=== PATIENT | female | born 1990 | race Caucasian/White ===

== ENCOUNTER → 2017-08-08 | Outpatient (CLI) | payer BC ==
[~2017-08-08] MED LIST: AUGMENTIN 875-1 EACH PO; AVPAK AZITHROM250 MG PO; FLEXERIL10 MG PO; IBU-8800 MG PO; LORTAB 5/500 501 TAB PO; PHENERGAN 25MG.25 M1 PO; PREDNISONE 20MG20 MG PO; PRENATAL PLUS1 TA1 PO; TESSALON PERLE200 MG PO; ZYRTEC-D 12HR 51 TER PO
--- NOTE | 2017-08-08 08:34 | RADIOLOGY REPORT PS360 ---
ELBOW-LT-2 VIEWS COMPARISON: Left elbow 06/27/2017 and several previous images of the left elbow HISTORY: Follow-up fracture dislocation TECHNIQUE: AP and lateral views FINDINGS: Small ossifications are again seen adjacent to the medial condyle of the humerus. The radial head appears intact. Is a very faint bone density at the tip of the olecranon only seen on the lateral projection and probably due to a tiny a bulge of chip fracture unfused. The soft tissues are normal. 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
--- NOTE | 2017-08-08 08:40 | RADIOLOGY REPORT PS360 ---
WRIST-3 VIEWS-LT COMPARISON: Left wrist 06/27/2017 HISTORY: Follow-up fracture TECHNIQUE: AP lateral and oblique views FINDINGS: The metallic bone plate is again seen volar surface of the distal radius fixated by multiple threaded screws reducing the previous distal radial fracture in near anatomic alignment. 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
== END ==
LOC: RAD 07:55
DX: S53.105D Unspecified dislocation of left ulnohumeral joint, subsequent encounter (principal); S52.572D Other intraarticular fracture of lower end of left radius, subsequent encounter for closed fracture with routine healing